=== PATIENT | female | born 1950 | race Two or more races ===

== ENCOUNTER 2017-06-02 08:20 | Emergency (ER) | payer OTHER, MEDICARE ==
[~2017-06-02] VITALS: Ht 170.2 cm; Wt 59.9 kg
--- NOTE | 2017-06-02 08:33 | NUR ---
BIB SON FROM [facility] AND [facility]LL 0700 TODAY. COMPLAINING OF NOSE AND CHIN PAIN, 6/, ACHING,. DENIES KO,. NO DIZZINESS REPORTED. VSS.
[2017-06-02] MEDS ORDERED: IBUPROFEN 400 MG TABLET ONE (08:43)
--- NOTE | 2017-06-02 08:50 | NUR ---
PATIENT WAS TAKEN TO CT
[2017-06-02] MEDS ORDERED: IBUPROFEN 400 MG TABLET PO ONE (09:00)
[2017-06-02 09:29] VITALS: BP 148/88
--- NOTE | 2017-06-02 09:29 | NUR ---
Patient discharged to home in stable condition. Written and verbal after care instructions given. Patient verbalizes understanding of instruction.
== END 2017-06-02 09:30 | disposition home or self-care (01) ==
LOC: ER 08:21
DX: S02.2XXA Fracture of nasal bones, initial encounter for closed fracture (principal); W01.0XXA Fall on same level from slipping, tripping and stumbling without subsequent striking against object, initial encounter; Y92.89 Other specified places as the place of occurrence of the external cause; Y93.01 Activity, walking, marching and hiking; Y99.8 Other external cause status
CPT/HCPCS: 70450; 70486; 99284; A4606; Z7610